=== PATIENT | male | born 1980 | race Caucasian/White ===

== ENCOUNTER 2017-04-20 12:52 | Emergency (ER) | payer SELFPAY ==
--- NOTE | 2017-04-20 13:26 | ER Document Report ---
ED Cardiac - General Mode of Arrival: Ambulatory Information source: Patient TRAVEL OUTSIDE OF THE [place] IN LAST 30 DAYS: No <FANY GARCIA - Last Filed: 04/20/17 16:27> <CORINA SCHULTZ - Last Filed: 04/20/17 18:44> - General Chief Complaint: Chest Pain Stated Complaint: CHEST PAIN Time Seen by Provider: 04/20/17 13:16 Notes: Patient is a 36-year-old male who presents to the emergency department today with complaints of chest pain which began at work today at around 1100. Patient states that in route he was given nitroglycerin which relieved his symptoms. Patient took an aspirin at work prior to EMS arrival. Patient states the pain is sharp and sometimes radiates to his left arm. Patient has a history of atrial fibrillation and is on aspirin for anticoagulation therapy. Patient denies any fevers but does state he has had a cough the last few days.` (FANY GARCIA) - Related Data Allergies/Adverse Reactions: procaine HCl [From Novocain] Allergy (Verified 04/20/17 13:18) mushrooms Allergy (Uncoded 04/20/17 13:18) Past Medical History - General Information source: Patient - Social History Smoking Status: Never Smoker Cigarette use (# per day): No Chew tobacco use (# tins/day): No Frequency of alcohol use: None Drug Abuse: None Lives with: Family Family History: Reviewed & Not Pertinent, CAD - [place], Father a fib, Malignancy - Past Medical History Cardiac Medical History: Reports: Hx Atrial Fibrillation - since , Hx Heart Attack Pulmonary Medical History: Reports: Hx Asthma Musculoskeltal Medical History: Reports Hx Arthritis - unsure; hands hurt Past Surgical History: Reports: Hx Cardiac Surgery - cardioversion, Hx Orthopedic Surgery - right finger - Immunizations Immunizations up to date: Yes Hx Diphtheria, Pertussis, Tetanus Vaccination: Yes - 2005 <FANY GARCIA - Last Filed: 04/20/17 16:27> Review of Systems - Review of Systems Constitutional: denies: Fever EENT: No symptoms reported Cardiovascular: See HPI, Chest pain Respiratory: See HPI, Cough Gastrointestinal: No symptoms reported Genitourinary: No symptoms reported Male Genitourinary: No symptoms reported Musculoskeletal: No symptoms reported Skin: No symptoms reported Hematologic/Lymphatic: No symptoms reported Neurological/Psychological: No symptoms reported -: Yes All other systems reviewed and negative <FANY GARCIA - Last Filed: 04/20/17 16:27> Physical Exam <FANY GARCIA - Last Filed: 04/20/17 16:27> <CORINA SCHULTZ - Last Filed: 04/20/17 18:44> - Vital signs Vitals: Resp 23 H 04/20/17 13:01 - Notes Notes: Physical Exam: General: Alert, appears well. HEENT: Normocephalic. Atraumatic. PERRL. Extraocular movements intact. Oropharynx clear. Neck: Supple. Non-tender. Respiratory: No respiratory distress. Clear and equal breath sounds bilaterally. Cardiovascular: Regular rate and rhythm. Abdominal: Normal Inspection. Non-tender. No distension. Normal Bowel Sounds. Back: Non-tender. No deformity or step off. Extremities: Moves all four extremities. Upper extremities: Normal inspection. Normal ROM. Lower extremities: Normal inspection. No edema. Normal ROM. Neurological: Normal cognition. AAOx4. Normal speech. Psychological: Normal affect. Normal Mood. Skin: Warm. Dry. Normal color. (JOSEFANY) Course - Laboratory Result Diagrams: 04/20/17 13:05 04/20/17 13:05 <FANY GARCIA - Last Filed: 04/20/17 16:27> - Laboratory Result Diagrams: 04/20/17 13:05 04/20/17 13:05 - Diagnostic Test Radiology reviewed: Image reviewed, Reports reviewed - Cardiomegaly, cannot rule small infiltrate in the left lung base. - EKG Interpretation by De Rhythm: A.Fib - Average rate approximately 83, no clear ischemia. Atrial fibrillation. QRS of normal duration. <CORINA SCHULTZ - Last Filed: 04/20/17 18:44> - Re-evaluation Re-evalutation: 04/20/17 16:29 Patient reports his cough as being very mild and non-productive. Patient states he had a fever four days ago which has subsided. Patient states he takes aspirin daily for anticoagulation. (FANY GARCIA) 04/20/17 16:21 Initial cardiac enzymes are negative. As the patient does have a questionable area on his x-ray as well has recent cough, we will treat him with antibiotics for this. His heart score is low, he does have a history of atrial fibrillation , obviously appears to have a sick heart so I have encouraged him to ensure cardiac follow-up as he has not kept up with even a primary care physician let alone the car detailer I have recommended at least aspirin to the patient with his history of cardiomegaly and I suspect borderline CHF. 04/20/17 18:31 Rechecked the patient. Second troponin is negative. Though he did receive nitroglycerin and it possibly helped, I do not see any sign of this being coronary artery disease. His second troponin was negative as well. He will obtain a car detailer for follow-up. He is PERC negative with no hemoptysis, sedentation periord, as well. (CORINA SCHULTZ) - Vital Signs Vital signs: Temp Pulse Resp BP Pulse Ox 14 119/54 L 100 04/20/17 15:01 04/20/17 15:01 04/20/17 15:01 - Laboratory Laboratory results interpreted by me: 04/20/17 13:05 Hgb 11.4 L Hct 35.3 L MCV 72 L MCH 23.1 L RDW 15.0 H Plt Count 510 H Eosinophils % 6.6 H Discharge <FANY GARCIA - Last Filed: 04/20/17 16:27> <CORINA SCHULTZ - Last Filed: 04/20/17 18:44> - Discharge Clinical Impression: Chest pain, Possible infiltrate Condition: Good Disposition: HOME, SELF-CARE Instructions: Chest Pain of Unclear Cause ([facility]) Additional Instructions: I would encourage you to obtain follow-up with a car detailer such as Dr. Anna who is local. Please return for worsening or concern. Finish the antibiotics starting tomorrow. Prescriptions: Azithromycin [Zithromax] 250 mg PO DAILY #4 tablet Forms: Return to Work Referrals: EDENILSON ANNA MD [ACTIVE STAFF] - Follow up in 1 week Scribe Attestation: 04/20/17 18:36 I personally performed the services described in the documentation, reviewed and edited the documentation which was dictated to the scribe in my presence, and it accurately records my words and actions. (CORINA SCHULTZ) Scribe Documentation - Scribe Written by Jason:: Jason Walsh, 04/20/2017 1608 acting as scribe for :: Maddie <FANY GARCIA - Last Filed: 04/20/17 16:27>
[2017-04-20 13:50] LABS: ABSOLUTE BASOPHILS # (AUTO) 0.1 10^3/uL (0.0-0.2); ABSOLUTE EOSINOPHILS # (AUTO) 0.5 10^3/uL (0.0-0.6); ABSOLUTE LYMPHOCYTES (AUTO) 2.1 10^3/uL (0.5-4.7); ABSOLUTE MONOCYTES (AUTO) 0.9 10^3/uL (0.1-1.4); ABSOLUTE NEUT (AUTO) 4.2 10^3/uL (1.7-8.2); BASOPHILS % (AUTO) 0.9 % (0-2); EOSINOPHILS % (AUTO) 6.6 % (0-6); HEMATOCRIT 35.3 % (37.9-51.0); HEMOGLOBIN 11.4 g/dL (13.5-17.0); HGB HCT DIFFERENCE -1.1; LYMPHOCYTES % (AUTO) 27.1 % (13-45); MEAN CORPUSCULAR HEMOGLOBIN 23.1 pg (27.0-33.4); MEAN CORPUSCULAR HGB CONC 32.2 g/dL (32.0-36.0); MEAN CORPUSCULAR VOLUME 72 fl (80-97); MONOCYTES % (AUTO) 11.9 % (3-13); RED BLOOD COUNT 4.93 10^6/uL (4.35-5.55); SEGMENTED NEUTROPHILS % (AUTO) 53.5 % (42-78); WHITE BLOOD COUNT 7.9 10^3/uL (4.0-10.5)
[2017-04-20 13:55] LABS: PROTHROMBIN TIME 14.3 SEC (11.4-15.4)
--- NOTE | 2017-04-20 13:59 | RADIOLOGY REPORT (SQ) ---
EXAM DESCRIPTION: CHEST SINGLE VIEW COMPLETED DATE/TIME: 04/20/2017 1:49 pm REASON FOR STUDY: CP COMPARISON: 07/29/2016 EXAM PARAMETERS: NUMBER OF VIEWS: One view. TECHNIQUE: Single frontal radiographic view of the chest acquired. RADIATION DOSE: NA LIMITATIONS: None. FINDINGS: LUNGS AND PLEURA: The left costophrenic angle is obscured. MEDIASTINUM AND HILAR STRUCTURES: A small hiatal hernia is present. HEART AND VASCULAR STRUCTURES: Cardiomegaly with no erika CHF. BONES: No acute findings. HARDWARE: None in the chest. OTHER: No other significant finding. IMPRESSION: 1. Cannot exclude a limited pneumonia in the left costophrenic angle. 2. Cardiomegaly without CHF. 3. Small hiatal. TECHNICAL DOCUMENTATION: JOB ID: [id number]
[2017-04-20 14:05] LABS: ALANINE AMINOTRANSFERASE 30 U/L (21-72); ALBUMIN 3.8 g/dL (3.5-5.0); ALKALINE PHOSPHATASE 83 U/L (38-126); ANION GAP 14 (5-19); ASPARTATE AMINO TRANSFERASE 25 U/L (17-59); BILIRUBIN,DIRECT 0.4 mg/dL (0.0-0.4); BILIRUBIN,TOTAL 1.1 mg/dL (0.2-1.3); BLOOD UREA NITROGEN 11 mg/dL (7-20); CALCIUM 9.5 mg/dL (8.4-10.2); CARBON DIOXIDE 24 mmol/L (22-30); CHLORIDE 104 mmol/L (98-107); CREATINE KINASE 125 U/L (55-170); CREATININE RESULT 0.92 mg/dL (0.52-1.25); GLUCOSE 99 mg/dL (75-110); POTASSIUM 3.9 mmol/L (3.6-5.0); SODIUM 141.6 mmol/L (137-145); TOTAL PROTEIN 6.6 g/dL (6.3-8.2)
[2017-04-20 14:17] LABS: TROPONIN I < 0.012 ng/mL
[2017-04-20] MEDS ORDERED: AZITHROMYCIN 250 MG TABLET PO ONE (18:23)
--- NOTE | 2017-04-20 18:32 | EKG REPORT ---
SEVERITY:- ABNORMAL ECG - ATRIAL FIBRILLATION, V-RATE 63-106 : Confirmed by: Drew Navarro MD 20-Apr-2017 18:31:15
[2017-04-20 19:37] VITALS: BP 128/88
== END 2017-04-20 19:47 | disposition home or self-care (01) ==
LOC: ER 12:52
DX: R07.9 Chest pain, unspecified (principal); R05 Cough; J45.909 Unspecified asthma, uncomplicated; I51.7 Cardiomegaly; I48.91 Unspecified atrial fibrillation; Z79.82 Long term (current) use of aspirin; Z88.4 Allergy status to anesthetic agent; Z91.018 Allergy to other foods; Z82.49 Family history of ischemic heart disease and other diseases of the circulatory system
CPT/HCPCS: 36415; 71010; 80053; 82550; 82553; 84484; 85025; 85610; 93005; 93010; 99285

== ENCOUNTER 2017-09-20 22:00 | Emergency (ER) | payer SELFPAY ==
[2017-09-20 22:53] LABS: HEMATOCRIT 29.9 % (37.9-51.0); HEMOGLOBIN 8.6 g/dL (13.5-17.0); MEAN CORPUSCULAR HEMOGLOBIN 17.4 pg (27.0-33.4); MEAN CORPUSCULAR HGB CONC 28.9 g/dL (32.0-36.0); PLATELET COUNT 631 10^3/uL (150-450); RED BLOOD COUNT 4.97 10^6/uL (4.35-5.55); WHITE BLOOD COUNT 8.7 10^3/uL (4.0-10.5)
[2017-09-20 22:56] LABS: APPEARANCE,URINE SLIGHTLY-CLOUDY; BILIRUBIN,URINE NEGATIVE (NEGATIVE); CALCIUM OXALATE CRYSTALS,URINE MANY /HPF; COLOR,URINE YELLOW; GLUCOSE, URINE NEGATIVE (NEGATIVE); KETONES,URINE NEGATIVE (NEGATIVE); LEUKOCYTE ESTERASE,URINE NEGATIVE (NEGATIVE); NITRITE,URINE NEGATIVE (NEGATIVE); PROTEIN,URINE NEGATIVE (NEGATIVE); URINE SPECIFIC GRAVITY 1.031
[2017-09-20 23:08] LABS: ALANINE AMINOTRANSFERASE 24 U/L (21-72); ALBUMIN 4.3 g/dL (3.5-5.0); ALKALINE PHOSPHATASE 80 U/L (38-126); ANION GAP 12 (5-19); ASPARTATE AMINO TRANSFERASE 26 U/L (17-59); BLOOD UREA NITROGEN 16 mg/dL (7-20); CALCIUM 9.8 mg/dL (8.4-10.2); CARBON DIOXIDE 26 mmol/L (22-30); CHLORIDE 102 mmol/L (98-107); CREATINE KINASE 253 U/L (55-170); GLUCOSE 92 mg/dL (75-110); POTASSIUM 4.1 mmol/L (3.6-5.0); TOTAL PROTEIN 6.9 g/dL (6.3-8.2)
--- NOTE | 2017-09-20 23:15 | RADIOLOGY REPORT (SQ) ---
EXAM DESCRIPTION: CHEST SINGLE VIEW COMPLETED DATE/TIME: 09/20/2017 10:50 pm REASON FOR STUDY: chest pain COMPARISON: 07/29/2016 EXAM PARAMETERS: NUMBER OF VIEWS: One view. TECHNIQUE: Single frontal radiographic view of the chest acquired. RADIATION DOSE: NA LIMITATIONS: None. FINDINGS: LUNGS AND PLEURA: No acute opacities, masses or pneumothorax. No pleural effusion. MEDIASTINUM AND HILAR STRUCTURES: Stable. HEART AND VASCULAR STRUCTURES: Stable. BONES: No acute findings. HARDWARE: None in the chest. OTHER: No other significant finding. IMPRESSION: NO ACUTE RADIOGRAPHIC FINDING IN THE CHEST. TECHNICAL DOCUMENTATION: JOB ID: [id number] [place]-72 2010 [employer]- All Rights Reserved
[2017-09-20 23:16] LABS: ABSOLUTE LYMPHOCYTES# (MANUAL) 3.6 10^3/uL (0.5-4.7); ABSOLUTE NEUTROPHILS# (MANUAL) 3.7 10^3/uL (1.7-8.2); BASOPHILS % (MANUAL) 0 % (0-2); EOSINOPHILS % (MANUAL) 6 % (0-6); LYMPHOCYTES % (MANUAL) 41 % (13-45); MONOCYTES % (MANUAL) 11 % (3-13); SEGMENTED NEUTROPHILS % (MAN) 42 % (42-78); TOTAL CELLS COUNTED 100
[2017-09-20 23:18] LABS: ANISOCYTOSIS 1+; BURR CELLS SLIGHT; HYPOCHROMASIA 2+; OVALOCYTES 1+; PLATELET COMMENT INCREASED; POIKILOCYTOSIS 1+; SCHISTOCYTES SLIGHT; TEAR DROP CELLS SLIGHT; TOXIC GRANULATION SLIGHT
[2017-09-20 23:20] LABS: MEAN CORPUSCULAR VOLUME 60 fl (80-97)
[2017-09-20 23:27] LABS: TROPONIN I < 0.012 ng/mL
--- NOTE | 2017-09-20 23:58 | ER Document Report ---
ED Medical Screen (RME) - General Chief Complaint: chest pain and breathing problem Stated Complaint: CHEST PAIN Time Seen by Provider: 09/20/17 23:54 Mode of Arrival: Ambulatory Information source: Patient Notes: 36 yo male chronic A Fib since c/o sharp/dull retrosternal midline chest pain since 2 pm today. "I'm turning pale". Hands shaking while trying to eat dinner. No N/D. Diarrhea 1 hour ago. No abd. pain. Hx chest pain. No CAD, non smoker, non diabetic, non hyperlipedemic. FHx: a fib, dad [place] age 17 ([age]). TRAVEL OUTSIDE OF THE [place] IN LAST 30 DAYS: No - Related Data Allergies/Adverse Reactions: procaine HCl [From Novocain] Allergy (Verified 04/20/17 13:18) mushrooms Allergy (Uncoded 04/20/17 13:18) Past Medical History - Past Medical History Cardiac Medical History: Reports: Hx Atrial Fibrillation - since , Hx Heart Attack Pulmonary Medical History: Reports: Hx Asthma Musculoskeltal Medical History: Reports Hx Arthritis - unsure; hands hurt Past Surgical History: Reports: Hx Cardiac Surgery - cardioversion, Hx Orthopedic Surgery - right finger - Immunizations Immunizations up to date: Yes Hx Diphtheria, Pertussis, Tetanus Vaccination: Yes - 2005 Physical Exam - Vital signs Vitals: Temp Pulse Resp BP Pulse Ox 97.9 F 87 18 146/84 H 98 09/20/17 22:34 09/20/17 22:34 09/20/17 22:34 09/20/17 22:34 09/20/17 22:34 Course - Vital Signs Vital signs: Temp Pulse Resp BP Pulse Ox 97.9 F 87 18 146/84 H 98 09/20/17 22:34 09/20/17 22:34 09/20/17 22:34 09/20/17 22:34 09/20/17 22:34 - Laboratory Result Diagrams: 09/20/17 22:25 09/20/17 22:25 Laboratory results interpreted by me: 09/20/17 09/20/17 09/20/17 22:25 22:25 22:25 Hgb 8.6 L Hct 29.9 L MCV 60 L MCH 17.4 L MCHC 28.9 L RDW 18.0 H Plt Count 631 H Creatine Kinase 253 H Urine Urobilinogen 4.0 H
--- NOTE | 2017-09-21 04:41 | ER Document Report ---
ED General - General Mode of Arrival: Ambulatory Information source: Patient TRAVEL OUTSIDE OF THE [place] IN LAST 30 DAYS: No <FANY GARCIA - Last Filed: 09/21/17 05:36> <JANI KAN - Last Filed: 09/21/17 06:09> - General Chief Complaint: chest pain and breathing problem Stated Complaint: CHEST PAIN Time Seen by Provider: 09/20/17 23:54 Notes: Patient is a 36-year-old male who presents to the emergency department today with multiple complaints however his chest pain which began yesterday is what brought him in today. Patient includes that he has been pale in color recently , has had handshaking when eating, generalized fatigue, headaches, abdominal pain, and night sweats for the last 3 or 4 months. Patient states he has a history of atrial fibrillation but has not been on blood thinning medications in 9 years. Patient states he does not have a doctor. Patient denies any fevers, dark stool, bloody stool, or relation of his abdominal pain to specific foods. Patient has never been anemic in the past. (FANY GARCIA) - Related Data Allergies/Adverse Reactions: procaine HCl [From Novocain] Allergy (Verified 04/20/17 13:18) mushrooms Allergy (Uncoded 04/20/17 13:18) Past Medical History - General Information source: Patient - Social History Smoking Status: Never Smoker Cigarette use (# per day): No Frequency of alcohol use: None Drug Abuse: None Lives with: Family Family History: Reviewed & Not Pertinent, CAD - [place], Father a fib, Malignancy Patient has suicidal ideation: No Patient has homicidal ideation: No - Past Medical History Cardiac Medical History: Reports: Hx Atrial Fibrillation - since , no blood thinners in 9 years, Hx Heart Attack Pulmonary Medical History: Reports: Hx Asthma Musculoskeltal Medical History: Reports Hx Arthritis - unsure; hands hurt Past Surgical History: Reports: Hx Cardiac Surgery - cardioversion, Hx Orthopedic Surgery - right finger - Immunizations Immunizations up to date: Yes Hx Diphtheria, Pertussis, Tetanus Vaccination: Yes - 2005 <FANY GARCIA - Last Filed: 09/21/17 05:36> Review of Systems - Review of Systems Constitutional: See HPI, Other - night sweats, fatigue. denies: Fever EENT: No symptoms reported Cardiovascular: See HPI, Chest pain Respiratory: No symptoms reported Gastrointestinal: See HPI, Abdominal pain. denies: Blood streaked bowels, Black stools Genitourinary: No symptoms reported Male Genitourinary: No symptoms reported Musculoskeletal: No symptoms reported Skin: See HPI, Change in color - 'pale' Hematologic/Lymphatic: No symptoms reported Neurological/Psychological: See HPI, Headaches, Other - "shaking" -: Yes All other systems reviewed and negative <FANY GARCIA - Last Filed: 09/21/17 05:36> Physical Exam <FANY GARCIA - Last Filed: 09/21/17 05:36> <JANI KAN - Last Filed: 09/21/17 06:09> - Vital signs Vitals: Temp Pulse Resp BP Pulse Ox 97.9 F 87 18 146/84 H 98 09/20/17 22:34 09/20/17 22:34 09/20/17 22:34 09/20/17 22:34 09/20/17 22:34 - Notes Notes: Physical Exam: General: Alert, appears well. HEENT: Normocephalic. Atraumatic. PERRL. Extraocular movements intact. Oropharynx clear. Neck: Supple. Non-tender. Respiratory: No respiratory distress. Clear and equal breath sounds bilaterally. Cardiovascular: Regular rate and rhythm. Abdominal: Obese. Non-tender. No distension. Normal Bowel Sounds. Back: Non-tender. No deformity or step off. Extremities: Moves all four extremities. Upper extremities: Normal inspection. Normal ROM. Lower extremities: Normal inspection. No edema. Normal ROM. Neurological: Normal cognition. AAOx4. Normal speech. Psychological: Normal affect. Normal Mood. Skin: Warm. Dry. Pale. (FANY GARCIA) Course - Laboratory Result Diagrams: 09/20/17 22:25 09/20/17 22:25 <FANY GARCIA - Last Filed: 09/21/17 05:36> - Laboratory Result Diagrams: 09/20/17 22:25 09/20/17 22:25 - Diagnostic Test Radiology reviewed: Reports reviewed - EKG Interpretation by Me Rate: Normal Rhythm: A.Fib <JANI KAN - Last Filed: 09/21/17 06:09> - Re-evaluation Re-evalutation: 09/21/17 06:07 Patient is a 36-year-old male who initially came in with chest pain. Patient has a history of atrial fibrillation. He does not have a primary doctor and he does not follow with any specialist at this time. Patient also with anemia. He did not know that he had this. Vitals are stable. No acute blood loss. Patient has a hiatal hernia on CT. No other findings. Patient will be given a referral to a primary care doctor, gastroenterology, and also cardiology for management of A. fib, hiatal hernia. I would not start blood thinners on this patient right now as he is already anemic. Patient will be started on omeprazole. Understands and agrees with plan. No chest pain at this time. AVSS. Stable for discharge. (JANI KAN) - Vital Signs Vital signs: Temp Pulse Resp BP Pulse Ox 97.6 F 64 18 117/66 100 09/21/17 05:49 09/21/17 05:49 09/21/17 05:49 09/21/17 05:49 09/21/17 05:49 - Laboratory Laboratory results interpreted by me: 09/20/17 09/20/17 09/20/17 22:25 22:25 22:25 Hgb 8.6 L Hct 29.9 L MCV 60 L MCH 17.4 L MCHC 28.9 L RDW 18.0 H Plt Count 631 H Creatine Kinase 253 H Urine Urobilinogen 4.0 H Discharge <FANY GARCIA - Last Filed: 09/21/17 05:36> <JANI KAN - Last Filed: 09/21/17 06:09> - Discharge Clinical Impression: Hiatal hernia Anemia Qualifiers: Anemia type: iron deficiency Iron deficiency anemia type: unspecified iron deficiency Qualified Code(s): D50.9 - Iron deficiency anemia, unspecified Atrial fibrillation Qualifiers: Atrial fibrillation type: chronic Qualified Code(s): I48.2 - Chronic atrial fibrillation Condition: Stable Disposition: HOME, SELF-CARE Instructions: Anemia, Iron Deficiency ([facility]), Atrial Fibrillation ([facility]), Family Physicians / Practices, Hernia ([facility]) Prescriptions: Iron,Carbonyl [Iron Chews] 15 mg PO DAILY #30 tab.chew Omeprazole 20 mg PO DAILY #30 tablet.dr Thomas: EDENILSON MARION MD [ACTIVE STAFF] - Follow up in 3-5 days ERIC DOHERTY MD [ACTIVE STAFF] - Follow up in 3-5 days Scribe Attestation: 09/21/17 06:09 I personally performed the services described in the documentation, reviewed and edited the documentation which was dictated to the scribe in my presence, and it accurately records my words and actions. (JANI KAN
--- NOTE | 2017-09-21 05:42 | RADIOLOGY REPORT (SQ) ---
EXAM DESCRIPTION: 1. CT of the chest per PE protocol with contrast. 2. CT of the abdomen and pelvis with contrast. CLINICAL HISTORY: anemia, nights sweats, anemia COMPARISON: None Available. TECHNIQUE: Axial CTA images of the chest obtained per PE protocol following the uncomplicated intravenous administration of 100 mL Isovue-370. 3-D/MIP reformatted images available. Axial CT images of the abdomen and pelvis were then obtained in arterial and delayed phases. DLP: 5509.94 mGycm FINDINGS: CTA CHEST: Mediastinal windows demonstrate an adequate contrast bolus. No pulmonary embolus identified. Suboptimal evaluation of the segmental and subsegmental pulmonary arterial branches due to contrast bolus timing. Visualized thyroid gland is unremarkable. No mediastinal lymphadenopathy. Large hiatal hernia. No cardiomegaly, pericardial effusion, or coronary artery atherosclerosis. Thoracic aorta is unremarkable. Great vessels have normal anatomic configuration. Lung windows demonstrate no consolidation, pneumothorax, or pleural effusion. Abdomen: The liver has normal size and density. No intrahepatic mass or biliary dilatation. No calcified gallstones. The spleen, pancreas, and adrenal glands are unremarkable. The kidneys have normal size and contour without evidence of solid mass or hydronephrosis. The aorta and IVC have normal caliber and position. The proximal visceral and renal arteries are patent. No free intraperitoneal air. Pelvis: Small left fat-containing inguinal hernia. Prostate is not enlarged. Urinary bladder is unremarkable. No free pelvic fluid or lymphadenopathy. No dilated loops of large or small bowel. Normal appendix. The visualized lung bases are clear. No destructive bone lesions identified. IMPRESSION: 1. No pulmonary embolus identified. 2. No acute abnormality identified in the abdomen or pelvis. 3. Large hiatal hernia. This exam was performed according to our departmental dose-optimization program, which includes automated exposure control, adjustment of the mA and/or kV according to patient size and/or use of iterative reconstruction technique.
[2017-09-21 05:50] VITALS: BP 117/66
--- NOTE | 2017-09-21 08:01 | EKG REPORT ---
SEVERITY:- ABNORMAL ECG - ATRIAL FIBRILLATION, V-RATE 74-134 : Confirmed by: Drew Navarro MD 21-Sep-2017 08:00:41
[2017-09-21 11:52] LABS: PATH REVIEW PATHOLOGIST REVIEWED
== END 2017-09-21 06:13 | disposition home or self-care (01) ==
LOC: ER 22:00
DX: K44.9 Diaphragmatic hernia without obstruction or gangrene (principal); D50.9 Iron deficiency anemia, unspecified; I48.2 Chronic atrial fibrillation; R07.9 Chest pain, unspecified; R53.83 Other fatigue; R51 Headache; R10.9 Unspecified abdominal pain; R61 Generalized hyperhidrosis; I25.2 Old myocardial infarction; J45.909 Unspecified asthma, uncomplicated; Z88.4 Allergy status to anesthetic agent; Z91.018 Allergy to other foods; Z82.49 Family history of ischemic heart disease and other diseases of the circulatory system
CPT/HCPCS: 36415; 71045; 71275; 74177; 80053; 81001; 82550; 82553; 84484; 85025; 93005; 93010; 99285

== ENCOUNTER 2018-04-18 18:32 | Emergency (ER) | payer OTHER ==
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
[2018-04-18] MEDS ORDERED: IBUPROFEN 600 MG TABLET PO ONE (21:00)
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
[2018-04-18 21:20] VITALS: BP 130/84
== END 2018-04-18 21:30 | disposition home or self-care (01) ==
LOC: ER 18:32
DX: M54.2 Cervicalgia (principal); M79.642 Pain in left hand; R07.9 Chest pain, unspecified; V89.2XXA Person injured in unspecified motor-vehicle accident, traffic, initial encounter
CPT/HCPCS: 71046; 72050; 99284